=== PATIENT | female | born 1950 | race Two or more races ===

== ENCOUNTER → 2018-10-04 | Day surgery (SDC) | payer OTHER | END | disposition home or self-care (01) | LOC: ADM 10-01 13:00 → AMB-ENDOS 05:45 | DX: D12.8 Benign neoplasm of rectum (principal); K57.30 Diverticulosis of large intestine without perforation or abscess without bleeding ==

== ENCOUNTER 2018-10-20 11:20 | Inpatient (IN) | payer OTHER ==
[~2018-10-20] VITALS: Ht 149.9 cm; Wt 63.0 kg
[2018-10-26] MEDS ORDERED: COZAAR50 MG PO (11:47)
[2018-10-26] MEDS ORDERED: SIMVASTATIN40 MG PO (11:47)
[2018-10-26] MEDS ORDERED: PROTONIX40 MG PO (11:48)
[2018-11-10] MEDS ORDERED: IMODIUM A-D2 M2 PO (08:20)
[2018-11-10] MEDS ORDERED: QUESTRAN PACKET4 GM PO (08:20)
[2018-11-10] MEDS ORDERED: TYLENOL EXTRA500 MG PO (08:20)
== END 2018-11-10 11:12 | disposition home or self-care (01) | DRG 330 ==
LOC: SURG 10-26 09:15 → O/R 11-02 07:54 → SURG 11-02 07:54
PROVIDERS: ADMIT Surgery
PROC: 0DTP4ZZ Resection of Rectum, Percutaneous Endoscopic Approach (ICD-10-PCS; 2018-11-02)
PROC: 07TC4ZZ Resection of Pelvis Lymphatic, Percutaneous Endoscopic Approach (ICD-10-PCS; 2018-11-02)
PROC: 0D1B4Z4 Bypass Ileum to Cutaneous, Percutaneous Endoscopic Approach (ICD-10-PCS; 2018-11-02)
PROC: 0DTN4ZZ Resection of Sigmoid Colon, Percutaneous Endoscopic Approach (ICD-10-PCS; principal; 2018-11-02 13:15)
PROC: 30233N1 Transfusion of Nonautologous Red Blood Cells into Peripheral Vein, Percutaneous Approach (ICD-10-PCS; 2018-11-05)
DX: D12.5 Benign neoplasm of sigmoid colon (principal); D62 Acute posthemorrhagic anemia; D12.8 Benign neoplasm of rectum; D37.5 Neoplasm of uncertain behavior of rectum; R15.9 Full incontinence of feces; I11.9 Hypertensive heart disease without heart failure; E78.00 Pure hypercholesterolemia, unspecified; F43.20 Adjustment disorder, unspecified; D72.828 Other elevated white blood cell count; E87.6 Hypokalemia

== ENCOUNTER 2019-01-27 11:38 | Inpatient (IN) | payer OTHER ==
[~2019-01-27] VITALS: Ht 149.9 cm; Wt 136.0 kg
[~2019-01-27 11:38] MED LIST: COZAAR50 MG PO; IMODIUM A-D2 M2 PO; PROTONIX40 MG PO; QUESTRAN PACKET4 GM PO; SIMVASTATIN40 MG PO; TYLENOL EXTRA500 MG PO
[2019-02-28] MEDS ORDERED: PERCOCET 5-3251 EACH PO (13:54)
[2019-02-28] MEDS ORDERED: OMEPRAZOLE20 MG PO (13:54)
[2019-02-28] MEDS ORDERED: INTESTINEX680 M1 PO (13:54)
== END 2019-02-28 15:17 | disposition home or self-care (01) | DRG 331 ==
LOC: SURG 02-15 09:30 → O/R 02-25 08:35 → SURG 02-25 09:30 → SURH 02-25 14:14
PROVIDERS: ADMIT Surgery
PROC: 0DQB4ZZ Repair Ileum, Percutaneous Endoscopic Approach (ICD-10-PCS; principal; 2019-02-25 09:00)
DX: Z43.2 Encounter for attention to ileostomy (principal); D50.0 Iron deficiency anemia secondary to blood loss (chronic); F43.29 Adjustment disorder with other symptoms; E78.00 Pure hypercholesterolemia, unspecified; I11.9 Hypertensive heart disease without heart failure; Z86.010 Personal history of colon polyps

== ENCOUNTER 2019-02-21 08:17 | Day surgery (SDC) | payer OTHER | END 2019-02-21 12:00 | disposition home or self-care (01) | LOC: AMB-ENDOS 08:17 | DX: C20 Malignant neoplasm of rectum (principal) ==

== ENCOUNTER 2020-04-09 09:11 | Day surgery (SDC) | payer OTHER ==
[~2020-04-09 09:11] MED LIST changes: +INTESTINEX680 M1 PO; +OMEPRAZOLE20 MG PO; +PERCOCET 5-3251 EACH PO
== END 2020-04-09 13:25 | disposition home or self-care (01) ==
LOC: AMB-ENDOS 09:11
PROVIDERS: ATTEND Surgery
DX: K62.89 Other specified diseases of anus and rectum (principal); Z20.828 Contact with and (suspected) exposure to other viral communicable diseases